=== PATIENT | male | born 1960 ===

== ENCOUNTER 2017-08-03 08:37 | Outpatient (CLI) | payer OTHER ==
[2017-08-03 09:56] LABS: Estimated GFR-MDRD - POC Greater than 90
--- NOTE | 2017-08-03 11:10 | CT ---
CHEST CT WITH CONTRAST: HISTORY: Right neck nodule x 1 year. 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 Evalua te for additional metastases. COMPARISON: None. TECHNIQUE: Chest CT Is performed with IV contrast. Coronal reformatted images are submitted for interpretation. FINDINGS: No mediastinal mass, lymphadenopathy, or hematoma. Heart size is within normal limits. No pericardi al effusion. Visualized aorta has a normal caliber. No periaortic fat stranding. The visualized solid organs are unremarkable. Fatty infiltration of the liver is suspected as well as heterogeneous attenuation. There is a nonobs tructing calculus in the left renal pelvis. Possible cyst in the kidney is noted, incompletely evalu ated measuring 1 cm. Tracheal and central bronchi are patent. There are multiple pleural-based masses involving the left hemithorax. [employer] pleural-based mass along the left upper lobe measures 1.4 x 0.7 cm. The largest pleural-based mass along the posterior left aspect of the left lower lobe pleura measuring 2. 0 x 2.9 cm. Adjacent osseous structures do not demonstrate any involvement. Small subcentimeter nod ules in the left lung base are noted. These nodules may be pleural-based and along the diaphragm. T here is a pleural-based mass along the left major fissure measuring 1.0 x 0.7 cm. There is also a ma ss along the left pericardium/pleural margin. No pneumothorax. No pleural effusion. There are no lytic or blastic lesions in the osseous structures. IMPRESSION: Multifocal pleural-based masses, worrisome for metastases until proven otherwise. POS: [facility]
--- NOTE | 2017-08-03 11:42 | CT ---
CT NECK WITH CONTRAST: Date: 08-03-17 History: 57-year-old male with malignant neoplasm of right tonsil with malignant cervical lymphadenopathy. Dr. Wilson reported the findings by telephone to Dr. Glen Lopez, especially the thrombosis of the rig ht internal jugular vein and right dural venous sinus, at 10:37 a.m. on 08-03-17. Comparison: None. FINDINGS: There is a huge complex multi-chambered solid and cystic right anterolateral neck mass representing e ither a single huge malignant lymph node, or a conglomeration of multiple matted pathologic lymph nod es, with multiple areas of necrosis. This complex measures in aggregate approximately 7.5 x 7.5 x 5.5 cm. At one point it severely compresses and occludes the right internal jugular vein. Directly super ior to this point of occlusion there is thrombus in the lumen of the upper portion of the right inter nal jugular vein which prorogates superiorly into the right sigmoid sinus, to the junction between th e sigmoid and transverse sinuses. The right sided mass conglomeration medially displaces the right ca rotid bifurcation to the left, and displaces the larynx to the left. There is a larger than 2.5 cm mass destroying a portion of the right mandible, just anterior and supe rior to the mandibular angle. The soft tissue tumor mass associated with this involves the right mast icator space, including right masseter muscle, and extends to the right buccal space. Nearby, there is a large 4.5 x 3 x 3.5 cm tumor mass involving the posterior half of the right tongue . On the contralateral left posterior tongue, there is a smaller, 3 x 2 cm mass which probably arises f rom the base of tongue (lingual tonsil). The right submandibular gland is extrinsically compressed and distorted by adjacent masses. There are mildly enlarged right level 1B lymph nodes anteriorly and inferiorly displaced. The bilateral palatine tonsils are enlarged, but the right one is more enlarged than the left, defini tely involved by tumor, measuring approximately 3.5 x 2 cm, mildly narrowing the oropharyngeal airway , displacing it to the left. The right side of the vallecula is effaced. In the contralateral left neck, there is a enlarged, necrotic malignant 4 x 2.5 x 3.5 cm level 2 lymp h node. IMPRESSION: 1. Severe, extensive, multifocal malignant neoplastic tumor involvement of the head and neck, which i ncludes: 2. A huge right neck conglomeration of matted, necrotic cervical lymph nodes which compresses and occ ludes the right internal jugular vein, with superior propagation of clot (thrombosis) into the right dural venous sinus (sigmoid sinus). 3. Multiple large malignant tumor masses bilaterally, right larger than left, including involvement o f the tongue; a bone destroying mass involving the right mandible; palatine and lingual tonsils, plus a malignant contralateral left level 2 lymph node. Code CR POS: [facility]
== END 2017-08-03 08:38 | disposition home or self-care (01) ==
LOC: CT 08:37
PROVIDERS: ATTEND Internal Medicine Hematology & Oncology
DX: C09.9 Malignant neoplasm of tonsil, unspecified (principal); C77.0 Secondary and unspecified malignant neoplasm of lymph nodes of head, face and neck; M27.9 Disease of jaws, unspecified; C02.4 Malignant neoplasm of lingual tonsil; C79.51 Secondary malignant neoplasm of bone; C79.89 Secondary malignant neoplasm of other specified sites
CPT/HCPCS: 70490; 71260

== ENCOUNTER 2017-10-06 11:42 | Day surgery (SDC) | payer MEDICAID ==
[2017-10-06] MEDS ORDERED: Dexamethasone 10 MG/ML VIAL SLOW IVP SCH (12:00)
[2017-10-06] MEDS ORDERED: DOCETAXEL IVPB SCH (12:00)
[2017-10-06] MEDS ORDERED: SODIUM CHLORIDE 0.9% IVPB SCH (12:00)
[2017-10-06] MEDS ORDERED: CARBOplatin 650 MG in Sodium Chloride 0.9% 250 ML 250 ML IVPB SCH (12:00)
[2017-10-06] MEDS ORDERED: Ondansetron HCl/PF 4 MG/2 ML Vial SLOW IVP SCH (12:00)
[2017-10-06 13:17] VITALS: BP 145/77; TEMP 98.2
== END 2017-10-06 15:42 | disposition home or self-care (01) ==
LOC: ONC/OP 11:42
PROVIDERS: ATTEND Internal Medicine Hematology & Oncology
DX: Z51.11 Encounter for antineoplastic chemotherapy (principal); C09.0 Malignant neoplasm of tonsillar fossa; I10 Essential (primary) hypertension; F17.210 Nicotine dependence, cigarettes, uncomplicated
CPT/HCPCS: 96375; 96413; 96417; J1100; J2405; J7050; J9045; J9171